=== PATIENT | female | born 1950 | race Caucasian/White ===

== ENCOUNTER → 2018-01-06 11:20 | Outpatient (CLI) | payer MEDICARE, OTHER ==
[~2018-01-06 11:20] MED LIST: CARAFATE1 G PO; DIOVAN HCT 320/1 TAB PO; HYDROCODONE-APA1 TAB PO; KLOR-CON 1010 MEQ PO; PROTONIX40 MG PO; VITAMIN B COMPL1 TAB PO; VITAMIN D5000 UNIT PO; ZYLOPRIM300 MG PO
[2018-01-15 14:04] VITALS: BMI 24.3
== END | disposition home or self-care (01) ==
LOC: D.CT 11:20
DX: K63.89 Other specified diseases of intestine (principal)

== ENCOUNTER 2018-01-14 07:18 | Inpatient (IN) | payer MEDICARE, OTHER ==
[~2018-01-14] VITALS: Ht 157.5 cm; Wt 60.3 kg
--- NOTE | ~2018-01-14 | OP ---
PATIENT NAME: YUMI WERNER MEDICAL RECORD: [id number] :54 LOCATION:[id number] ADMISSION DATE:01/14/18 SURGEON: CHAVEZ DILL MD DATE OF OPERATION: 01/14/2018 PREOPERATIVE DIAGNOSES: 1. Diverticulitis with sigmoid colon mass. 2. Hypertension. 3. Gout. POSTOPERATIVE DIAGNOSES: 1. Diverticulitis with sigmoid colon mass. 2. Hypertension. 3. Gout. PROCEDURE: Hand-assisted laparoscopic sigmoid colectomy. SURGEON: Chavez Dill MD BACKUP ADMINISTRATIVE COORDINATOR: Maegan Kerr APRN REPORT OF PROCEDURE: The patient's abdomen was prepped and draped in sterile fashion. A cutdown was made in the suprapubic region and electrocautery was used to dissect through the subcutaneous tissues and fascia. I bluntly entered the abdominal cavity and took down any adhesions that were present in the pelvis. A GelPort was inserted with a 5-mm trocar within it. After insufflation was obtained, then a 5-mm trocar was placed in the right lateral abdomen and a 12-mm trocar was placed in the right lower abdomen just anterior to the anterior superior iliac crest. Dissection of the inflammatory tissue was performed of the sigmoid colon and rectum. There were a lot of inflammatory adhesions present. These were teased down carefully with blunt dissection. At no point did we encounter any abscess cavities or purulence. Once we had the adhesions all taken down, then we could see the inflamed distal sigmoid colon, eventually I was able to make a window at the base of the rectum and fired a 55 blue load Endo-LEELEE stapler across the rectum. The mesentery was then taken down with sequential clamp and tie technique followed by a fire of a white load Endo-LEELEE stapler. We then transected the proximal sigmoid colon and sent the sigmoid colon off for permanent specimen. A 2-0 Prolene was used to make a pursestring at the base of the colon. A 25 EEA stapler anvil was then inserted and the pursestring was tied down tightly. The multiple dilators were placed through the patient's rectum followed by the 25 EEA stapler. We performed an end-to-end anastomosis. At the conclusion of this, we had 2 good rings of tissue in the stapler and we noticed there was no leak at the anastomotic site when we instilled air through the rectum while it was under water. I oversewed the anterior aspect of the staple line using multiple Lemberted 3-0 silks. I then freed up the white line of Toldt on the left lateral colon and mobilized the splenic flexure in order to take some tension off the anastomosis. At the conclusion of this, the anastomosis appeared to be under no tension at all. There was no sign of any bleeding in the pelvis or abdomen. We irrigated out the abdomen thoroughly with normal saline. At this point, the ports and insufflation were then removed. The fascia was then closed in the midline using running #1 loop PDS' times 2. The 12-mm trocar site fascia was closed with a single interrupted 0 Vicryl. The wounds were irrigated out with normal saline. The midline subcutaneous tissue was reapproximated with interrupted 3-0 Vicryls and the skin incisions were all closed with ariel. OPERATIVE REPORT [id number] YUMI WERNER COMPLICATIONS: None. CONDITION: Stable. ANESTHESIA: General endotracheal. BLOOD LOSS: 100 mL. TRANSINT:[id number] Voice Confirmation ID: [id number] DOCUMENT ID: [id number] CHAVEZ DILL MD at 1031 CC: MAT BURNETT MD [id number] DICTATION DATE: 01/14/18 1302 CRAFT MANAGER: 01/14/18 1452 [facility] IN 01/17/18 [facility] [address] [place] [address]
[~2018-01-14 07:18] MED LIST changes: -HYDROCODONE-APA1 TAB PO
[2018-01-14 08:26] LABS: HEMATOCRIT 34.1 % (36.0-48.0); HEMOGLOBIN 11.6 g/dL (12-16); MCH 31.4 pg (26.0-34.0); MCV 92.2 fL (80.0-100.0); RBC 3.7 10x6/uL (4.00-5.40); RDW 16.4 % (11.5-14.5); WBC 15.4 10x3/uL (4.8-10.8)
[2018-01-14 09:02] LABS: ANION GAP 14.6 mmol/L (8-16); CALCIUM 9.3 mg/dL (8.5-10.1); CARBON DIOXIDE 27.8 mmol/L (21.0-32.0); POTASSIUM - SERUM 4.4 mmol/L (3.5-5.1)
[2018-01-14 09:30] VITALS: BP 113/84; BMI 14.0
[2018-01-14 16:45] VITALS: BP 149/71
[2018-01-14 19:11] VITALS: BP 149/71; BMI 13.9
[2018-01-14 20:39] VITALS: BP 113/54
[2018-01-15 04:57] VITALS: BP 103/49
[2018-01-15 05:35] LABS: BASOPHILS 0 % (0-2); EOSINOPHILS 0 % (0-7); HEMATOCRIT 32.5 % (36.0-48.0); HEMOGLOBIN 10.7 g/dL (12-16); IMMATURE GRANULOCYTES 0.3 % (0-5); LYMPHOCYTES 6.5 % (15-50); MCH 30.8 pg (26.0-34.0); MCHC 32.9 g/dL (31.0-37.0); MCV 93.7 fL (80.0-100.0); MEAN PLATELET VOLUME 10.5 fL (7.4-10.4); MONOCYTES 6.9 % (2-11); NEUTROPHILS 86.3 % (40-80); RBC 3.47 10x6/uL (4.00-5.40); RDW 16.4 % (11.5-14.5); WBC 16.6 10x3/uL (4.8-10.8)
[2018-01-15 05:42] LABS: PLATELET COUNT 367 10x3/uL (130-400)
[2018-01-15 05:50] LABS: ANION GAP 13.4 mmol/L (8-16); CALCIUM 8.8 mg/dL (8.5-10.1); CARBON DIOXIDE 28.4 mmol/L (21.0-32.0); CREATININE - SERUM 0.9 mg/dL (0.6-1.3); POTASSIUM - SERUM 4.8 mmol/L (3.5-5.1)
[2018-01-15 09:57] VITALS: BP 107/44
[2018-01-15 13:39] VITALS: BP 90/28
[2018-01-15 14:04] VITALS: Ht 157.5 cm; Wt 60.3 kg
[2018-01-15 16:25] VITALS: BP 98/48
[2018-01-15 20:53] VITALS: BP 107/51
[2018-01-16 04:45] VITALS: BP 117/52
[2018-01-16 06:15] LABS: BASOPHILS 0.2 % (0-2); EOSINOPHILS 0.5 % (0-7); IMMATURE GRANULOCYTES 0.3 % (0-5); MCH 30.5 pg (26.0-34.0); MCHC 32.1 g/dL (31.0-37.0); MCV 94.9 fL (80.0-100.0); MEAN PLATELET VOLUME 10.4 fL (7.4-10.4); MONOCYTES 10.3 % (2-11); NEUTROPHILS 73.7 % (40-80); PLATELET COUNT 297 10x3/uL (130-400); RBC 2.95 10x6/uL (4.00-5.40); WBC 13.3 10x3/uL (4.8-10.8)
[2018-01-16 06:26] LABS: ANION GAP 13.1 mmol/L (8-16); CALCIUM 8.1 mg/dL (8.5-10.1); CARBON DIOXIDE 25.8 mmol/L (21.0-32.0); CREATININE - SERUM 0.9 mg/dL (0.6-1.3)
[2018-01-16 06:27] LABS: POTASSIUM - SERUM 3.9 mmol/L (3.5-5.1)
[2018-01-16 08:04] VITALS: BP 96/47
[2018-01-16 11:08] VITALS: BP 83/42
[2018-01-16 15:41] VITALS: BP 97/51
[2018-01-16 20:27] VITALS: BP 120/48
[2018-01-16 23:35] VITALS: BP 121/48
[2018-01-17 04:27] VITALS: BP 145/64
[2018-01-17 05:10] LABS: BASOPHILS 0.2 % (0-2); HEMATOCRIT 25.6 % (36.0-48.0); HEMOGLOBIN 8.5 g/dL (12-16); IMMATURE GRANULOCYTES 0.2 % (0-5); LYMPHOCYTES 22.1 % (15-50); MCH 30.8 pg (26.0-34.0); MCHC 33.2 g/dL (31.0-37.0); MEAN PLATELET VOLUME 10.3 fL (7.4-10.4); MONOCYTES 11.3 % (2-11); NEUTROPHILS 65.2 % (40-80); PLATELET COUNT 285 10x3/uL (130-400); RBC 2.76 10x6/uL (4.00-5.40); RDW 16.7 % (11.5-14.5)
[2018-01-17 05:12] LABS: MCV 92.8 fL (80.0-100.0); WBC 9.2 10x3/uL (4.8-10.8)
[2018-01-17 05:21] LABS: CALC OSMOLALITY 281 mosm/kg (275-300); CALCIUM 8.1 mg/dL (8.5-10.1); CARBON DIOXIDE 24.6 mmol/L (21.0-32.0); CHLORIDE - SERUM 108 mmol/L (98-107); CREATININE - SERUM 0.7 mg/dL (0.6-1.3); GLUCOSE 97 mg/dL (74-106); SODIUM 141 mmol/L (136-145); UREA NITROGEN 16 mg/dL (7-18); eGFR NON AFRICAN AMERICAN 89 mL/min (90-120)
[2018-01-17 05:23] LABS: POTASSIUM - SERUM 3.1 mmol/L (3.5-5.1)
[2018-01-17 08:10] VITALS: BP 124/44
[2018-01-17] MEDS ORDERED: HYDROCODONE-APA1 TAB PO (08:24)
== END 2018-01-17 09:49 | disposition home or self-care (01) | DRG 331 ==
LOC: D.SDCHOLD 07:18 → D.MS 07:18 → D.SDCHOLD 07:22 → D.MS 15:22
PROVIDERS: Anesthesiology; Surgery
PROC: 0DTN0ZZ Resection of Sigmoid Colon, Open Approach (ICD-10-PCS; principal; 2018-01-14 10:45)
DX: K57.32 Diverticulitis of large intestine without perforation or abscess without bleeding (principal); I10 Essential (primary) hypertension; M10.9 Gout, unspecified

== ENCOUNTER 2018-03-20 05:55 | Day surgery (SDC) | payer MEDICARE, OTHER ==
[~2018-03-20] VITALS: Ht 157.5 cm; Wt 54.0 kg
--- NOTE | ~2018-03-20 | OP ---
PATIENT NAME: YUMI WERNER MEDICAL RECORD: [id number] :54 LOCATION:[facility] ADMISSION DATE: SURGEON: CHAVEZ DILL MD DATE OF OPERATION: 03/20/2018 PREOPERATIVE DIAGNOSES: 1. Biliary dyskinesia. 2. Hypertension. 3. Gout. POSTOPERATIVE DIAGNOSES: 1. Biliary dyskinesia. 2. Hypertension. 3. Gout. PROCEDURE: Laparoscopic cholecystectomy. SURGEON: Chavez Dill MD REPORT OF PROCEDURE: The patient's abdomen was prepped and draped in sterile fashion. A cutdown was made on the superior aspect of the umbilicus. The 0 Vicryls were placed on the fascia bilaterally and the fascia was incised with 15-blade. I then attempted to bluntly entered the abdominal cavity, but the tissue was so firm I began to be concerned of possible scar tissue from previous surgeries. Multiple attempts were made to access the abdominal cavity, which were unsuccessful. At this point, a Veress needle was inserted in the left upper quadrant and the abdomen was insufflated. A 5-mm Visiport trocar was inserted in the right lateral subcostal region. At this point, I could see that there were some adhesions to the anterior abdominal wall from previous colectomy, but these were inferior to the umbilicus. I could see exactly where it is coming into the abdominal wall and this was clear and just not penetrated through the posterior aspect of the fascia. This fascia was opened up using electrocautery, and at this point, I bluntly entered the abdominal cavity and inserted a 12-mm Mikie port. Under direct visualization, a 5-mm trocar was placed in the epigastrium and another was placed in the right subcostal region. At this point, the gallbladder was grasped and elevated and showed no signs of any inflammatory changes. The cystic artery and cystic duct were dissected free and these were clipped proximally and distally and ligated in standard fashion. The gallbladder was taken off the liver bed using electrocautery and placed into an Endo Catch bag. The liver bed was then treated with electrocautery for any bleeding that was noted. We irrigated out the right upper quadrant. At this point, the ports and insufflation were then removed and the gallbladder was taken out through the umbilicus. The umbilical fascia was closed with interrupted 0 Vicryls times 3. The wounds were then irrigated out with normal saline and infused with 10 mL of 0.25% Marcaine with epinephrine. The skin incisions were all closed with subcutaneous 5-0 Monocryl and dressed appropriately. COMPLICATIONS: None. CONDITION: Stable. ANESTHESIA: General endotracheal and local. BLOOD LOSS: Minimal. OPERATIVE REPORT [id number] YUMI WERNER TRANSINT:[id number] Voice Confirmation ID: [id number] DOCUMENT ID: [id number] CHAVEZ DILL MD at 0918 CC: [id number] DICTATION DATE: 03/20/18 0904 CIRCUIT WALKER: 03/20/18 1017 [facility] [place] 03/20/18 [facility] [address] [place] [address]
[~2018-03-20 05:55] MED LIST changes: +HYDROCODONE-APA1 TAB PO
[2018-03-20 06:17] LABS: BASOPHILS 0.4 % (0-2); EOSINOPHILS 1.2 % (0-7); HEMATOCRIT 40.9 % (36.0-48.0); HEMOGLOBIN 14.2 g/dL (12-16); IMMATURE GRANULOCYTES 0.1 % (0-5); LYMPHOCYTES 35.9 % (15-50); MCH 32.6 pg (26.0-34.0); MCHC 34.7 g/dL (31.0-37.0); MCV 93.8 fL (80.0-100.0); MEAN PLATELET VOLUME 8.9 fL (7.4-10.4); NEUTROPHILS 51.4 % (40-80); PLATELET COUNT 234 10x3/uL (130-400); RBC 4.36 10x6/uL (4.00-5.40); RDW 15.2 % (11.5-14.5); WBC 6.8 10x3/uL (4.8-10.8)
[2018-03-20 06:36] LABS: CALC OSMOLALITY 287 mosm/kg (275-300); CARBON DIOXIDE 31.2 mmol/L (21.0-32.0); CHLORIDE - SERUM 103 mmol/L (98-107); CREATININE - SERUM 0.7 mg/dL (0.6-1.3); GLUCOSE 106 mg/dL (74-106); POTASSIUM - SERUM 3.5 mmol/L (3.5-5.1); SODIUM 145 mmol/L (136-145); UREA NITROGEN 10 mg/dL (7-18); eGFR NON AFRICAN AMERICAN 89 mL/min (90-120)
[2018-03-20 06:42] VITALS: BP 130/66; Ht 157.5 cm; Wt 54.0 kg
[2018-03-20] MEDS ORDERED: HYDROCODONE-APA1 TAB PO (08:58)
== END 2018-03-20 10:50 | disposition home or self-care (01) ==
LOC: D.OPS 05:55 → D.PAN 08:00 → D.OPS 10:50
PROVIDERS: Surgery
DX: K82.8 Other specified diseases of gallbladder (principal); M10.9 Gout, unspecified; I10 Essential (primary) hypertension; Z01.812 Encounter for preprocedural laboratory examination